=== PATIENT | female | born 1940 | race Caucasian/White ===

== ENCOUNTER 2020-01-18 11:40 | Emergency (ER) | payer MEDICARE, SELFPAY ==
[2020-01-18 11:40] VITALS: BP 180/100; PULSE 63; RESP 18; TEMP 36.9; O2SAT 97; BMI 23.8
--- NOTE | 2020-01-18 11:42 | ECG_ITS ---
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 Measurements Intervals [place] Rate: 60 P: 79 AL: 155 QRS: 60 QRSD: 75 T: 84 QT: 411 QTc: 411 Interpretive Statements SINUS RHYTHM No previous ECG available for comparison Electronically Signed On 01-18-2020 18:07:50 CDT by Chris Gooden M.D. [id number]
--- NOTE | 2020-01-18 11:42 | XRR_ITS ---
PROCEDURE INFORMATION: Exam: XR Chest, 1 View Exam date and time: 01/18/2020 12:11 PM Age: 79 years old Clinical indication: Chest pain; Type not specified TECHNIQUE: Imaging protocol: XR of the chest Views: 1 view. COMPARISON: No relevant prior studies available. FINDINGS: Lungs: Unremarkable. No consolidation. Pleural space: Unremarkable. No pleural effusion. No pneumothorax. Heart/Mediastinum: Unremarkable. No cardiomegaly. Bones/joints: Unremarkable. XR/XR chest 1V portable [id number] IMPRESSION: No acute findings.
--- NOTE | 2020-01-18 11:47 | ED_ITS ---
HPI - Chest Pain General: Chief Complaint: Chest Pain Stated Complaint: CHEST PAIN Time Seen by Provider: 01/18/20 11:41 History of Present Illness: HPI narrative: 79-year-old female comes in concerned about her blood pressures been getting high readings at home highest she reported is 192/92. She had shaking and some kind of chest pressure/pain lasted for just a few seconds it radiated up into the left side of her neck and the epigastrium. She is not had similar pain prior. She not had any kind of formal evaluation of her heart. 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 She has a heart score of 3 with 1-2 risk factors and age greater than 45. MD complaint: chest heaviness Pertinent past history: other (Hypertension) Onset (ago): day(s) Timing of current episode: episodic Prior episodes: Yes Onset: during rest Pain location: left chest Pain radiation: neck (Left) and jaw/teeth (Left) Severity: mild Quality: tightness Relieving factors: nothing Exacerbating factors: nothing Context: recent illness Associated symptoms: Reports no associated symptoms; Deny abdominal pain, dyspnea, fever(s), nausea or vomiting Review of Systems Const: Denies: fever(s), chills, body aches, change in appetite, fatigue or malaise ENMT: Denies: throat pain, ear or mastoid pain, nasal discharge or nasal congestion Card: Denies: chest pain, edema, dyspnea on exertion or orthopnea Resp: Denies: dyspnea, productive cough or non-productive cough GI: Denies: abdominal pain, nausea, vomiting, hematemesis, coffee ground e mesis, diarrhea, constipation, bloating, hematochezia or melena : Denies: flank pain, difficulty voiding, dysuria, urinary frequency or urinary urgency Skin/Breast: Denies: rash or pruritus PFSH ED PFSH: Medical History (Updated 01/18/20 @ 15:17 by Robinson Colón DO) Cervical spinal stenosis Lumbar stenosis Surgical History (Updated 01/18/20 @ 11:59 by Robinson Colón DO) Hx of lumbosacral spine surgery S/P left knee arthroscopy Social History (Updated 01/18/20 @ 15:33 by Maria Guadalupe Wynn LPN, RT) Smoking and tobacco status: never smoked Second hand smoke exposure: No Alcohol intake: never Substance/Drug Use: never Lives independently: Yes Household members: spouse Marital status: Current occupational status: retired History of recent travel: No Current gender identity: Female Physical Exam Const: COMMON NORMALS: average body habitus, patient oriented x3 and alert GENERAL APPEARANCE: cooperative, comfortable, well kempt and well developed NUTRITIONAL APPEARANCE: obese ORIENTATION/CONSCIOUSNESS: Yes awake, Yes oriented to person and Yes oriented to place HENMT: COMMON NORMALS: normocephalic and atraumatic HEAD & SCALP: normocephalic and atraumatic Eye: COMMON NORMALS: Equal, round and reactive pupils present, EOMs intact bilaterally, conjunctivae normal and no scleral icterus CONJUNCTIVA: Yes conjunctivae normal PUPIL: Yes Equal, round and reactive pupils present Neck/C-Spine: COMMON NORMALS: full ROM, no lymphadenopathy, supple, no meningeal signs and Thyroid normal THYROID: Thyroid normal and asymmetrical Lymph: LYMPHATIC: no lymphadenopathy noted Resp: COMMON NORMALS: normal respiratory effort, No retractions, No use of accessory muscles and clear to auscultation bilaterally AUSCULTATION: clear to auscultation bilaterally Cardio: COMMON NORMALS: regular rate and regular rhythm RATE: regular rate RHYTHM: regular rhythm HEART SOUNDS: no murmurs GI: COMMON NORMALS: Normal to inspection, nondistended, normoactive bowel sounds present, Soft to palpation and No hepatosplenomegaly present PALPATION: Yes Soft to palpation and Yes No hepatosplenomegaly present : COMMON NORMALS: Yes no CVA tenderness BLADDER/KIDNEY EXAM: Yes no CVA tenderness Back/Pelvis: COMMON NORMALS: no CVA tenderness LUMBAR SPINE/LOWER BACK: Yes normal to inspection Extremity: COMMON NORMALS: no clubbing, cyanosis or edema, no calf tenderness and no pedal edema Neuro: COMMON NORMALS: patient oriented x3 SENSORIUM/ORIENTATION: Yes alert, Yes oriented to person and Yes oriented to place MENINGEAL SIGNS: Yes no meningeal signs Psych: APPEARANCE: Yes well kempt Skin: COMMON NORMALS: no rashes or lesions noted and turgor normal GENERAL SKIN EXAM: no rashes or lesions noted and turgor normal Course Vital Signs: Vital signs: Vital Signs Temperature 98.5 F 01/18/20 11:40 Pulse Rate 55 L 01/18/20 15:26 Respiratory Rate 19 H 01/18/20 15:26 Blood Pressure 157/73 01/18/20 15:26 Pulse Oximetry 96 01/18/20 15:26 MDM - Chest Pain MDM Narrative: Medical decision making narrative: Atypical chest pain patient not significantly interested in more aggressive evaluation. The pain she did have today was sharp in nature very brief and lasted only a few seconds. Wearing go ahead and discharge her home Case management will schedule sestamibi stress test if she has recurrence of symptoms return to the emergency room immediately. Lab Data: Labs: Lab Results 01/18/20 01/18/20 01/18/20 Range/Units 12:00 12:00 12:00 WBC 4.1 (4.0-10.0) 10^3/ uL RBC 3.94 L (4.1-5.3) 10^6/u L Hgb 11.5 (11.5-15.3) g/dL Hct 35.4 L (37.0-47.0) % MCV 89.8 (81-99) fL MCH 29.2 (28.0-34.0) pg MCHC 32.5 (30.0-36.0) g/dL RDW 11.9 L (12.1-15.1) % Plt Count 227 (130-400) 10^3/c mm MPV 10.1 (7.4-10.4) fL Neut % (Auto) 64.2 % Lymph % (Auto) 26.2 % [place] % (Auto) 6.5 % Eos % (Auto) 2.2 % Baso % (Auto) 0.7 % Neut # (Auto) 2.65 (1.8-7.7) 10^3/u L Lymph # (Auto) 1.1 (0.8-4.8) 10^3/u L [place] # (Auto) 0.3 (0.2-0.9) 10^3/u L Eos # (Auto) 0.1 (0.0-0.8) 10^3/u L Baso # (Auto) 0.0 (0.0-0.1) 10^3/u L Nucleated RBC % (a uto) 0 % Nucleated RBCs # 0.0 /100WBC D-Dimer (0-0.59) ug/mIFE U Sodium 133 L (136-145) mmol/L Potassium 3.9 (3.5-5.1) mmol/L Chloride 99 (98-107) mmol/L Carbon Dioxide 25 (22-29) mmol/L Anion Gap 12.9 (5-19) BUN 14 (8-23) mg/dL Creatinine 0.8 (0.5-0.9) mg/dL GFR Calculation Not Reportable Glucose 131 H (65-115) mg/dL Calculated Osmolal ity 274 L (285-295) mOsm/k g Calcium 9.6 (8.5-10.5) mg/dL Total Bilirubin 0.3 (0.15-1.2) mg/dL AST 19 (0-32) U/L ALT 13 (0-33) U/L Alkaline Phosphata se 49 (35-105) IU/L Troponin T Baselin e 6 (0-10) ng/L Troponin T 120 Min [place] (0-10) ng/L Delta Troponin T (0-10) ABS# Total Protein 6.6 (6.6-8.7) g/dL Albumin 4.2 (3.5-5.2) g/dL Globulin 2.4 (1.3-4.6) g/dL 01/18/20 01/18/20 Range/Units 12:00 13:57 WBC (4.0-10.0) 10^3/ uL RBC (4.1-5.3) 10^6/u L Hgb (11.5-15.3) g/dL Hct (37.0-47.0) % MCV (81-99) fL MCH (28.0-34.0) pg MCHC (30.0-36.0) g/dL RDW (12.1-15.1) % Plt Count (130-400) 10^3/c mm MPV (7.4-10.4) fL Neut % (Auto) % Lymph % (Auto) % [place] % (Auto) % Eos % (Auto) % Baso % (Auto) % Neut # (Auto) (1.8-7.7) 10^3/u L Lymph # (Auto) (0.8-4.8) 10^3/u L [place] # (Auto) (0.2-0.9) 10^3/u L Eos # (Auto) (0.0-0.8) 10^3/u L Baso # (Auto) (0.0-0.1) 10^3/u L Nucleated RBC % (a uto) % Nucleated RBCs # /100WBC D-Dimer 0.75 H (0-0.59) ug/mIFE U Sodium (136-145) mmol/L Potassium (3.5-5.1) mmol/L Chloride (98-107) mmol/L Carbon Dioxide (22-29) mmol/L Anion Gap (5-19) BUN (8-23) mg/dL Creatinine (0.5-0.9) mg/dL GFR Calculation Glucose (65-115) mg/dL Calculated Osmolal ity (285-295) mOsm/k g Calcium (8.5-10.5) mg/dL Total Bilirubin (0.15-1.2) mg/dL AST (0-32) U/L ALT (0-33) U/L Alkaline Phosphata se (35-105) IU/L Troponin T Baselin e (0-10) ng/L Troponin T 120 Min [place] 7.04 (0-10) ng/L Delta Troponin T 1.04 (0-10) ABS# Total Protein (6.6-8.7) g/dL Albumin (3.5-5.2) g/dL Globulin (1.3-4.6) g/dL Discharge Plan Discharge Patient Disposition: Home Clinical Impression: Atypical chest pain Condition: Stable Prescriptions: No Action lisinopril 20 mg Tablet 20 mg PO DAILY RF: 0 amlodipine 5 mg Tablet 5 mg PO DAILY RF: 0 Nitrostat 0.4 mg Tablet, Sublingual 0.4 mg SUBLINGUAL Q5M PRN (Reason: Chest Pain) RF: 0 aspirin 81 mg Tablet,Chewable 81 mg PO DAILY RF: 0 gabapentin 100 mg Capsule 100 mg PO BEDTIME RF: 0 Crestor 10 mg Tablet 10 mg PO DAILY RF: 0 Discharge Orders: Discharge Order (Routine); Ordered 01/18/20 Ordered By: Robinson Colón Referrals: Sheila Cox MD [Primary Care Provider] - Discharge Diet: Advance as tolerated Discharge Activity: Increase activity as tolerated Activity Restrictions/Additional Instructions: Case management will call to schedule a sestamibi stress test Discharge Date/Time: 01/18/20 15:26 Coding Level of Care Code ED Marketing Ambassador for Manuel Fwd Exam Comprehensive
[2020-01-18 12:09] LABS: Basophils % 0.7 %; Eosinophils # 0.1 10^3/uL (0.0-0.8); Eosinophils % 2.2 %; Hematocrit 35.4 % (37.0-47.0); Hemoglobin 11.5 g/dL (11.5-15.3); Lymphocytes # 1.1 10^3/uL (0.8-4.8); Lymphocytes % 26.2 %; Mean Corpuscular HGB Conc 32.5 g/dL (30.0-36.0); Mean Corpuscular Hemoglobin 29.2 pg (28.0-34.0); Mean Corpuscular Volume 89.8 fL (81-99); Mean Platelet Volume 10.1 fL (7.4-10.4); Monocytes # 0.3 10^3/uL (0.2-0.9); Monocytes % 6.5 %; Neutrophils # 2.65 10^3/uL (1.8-7.7); Neutrophils % 64.2 %; Nucleated Red Blood Cells % 0 %; Platelet Count 227 10^3/cmm (130-400); Red Blood Count 3.94 10^6/uL (4.1-5.3); Red Cell Distribution Width 11.9 % (12.1-15.1); White Blood Count 4.1 10^3/uL (4.0-10.0)
[2020-01-18 12:26] LABS: Alanine Aminotransferase 13 U/L (0-33); Albumin Level 4.2 g/dL (3.5-5.2); Alkaline Phosphatase 49 IU/L (35-105); Anion Gap 12.9 (5-19); Aspartate Amino Transferase 19 U/L (0-32); Blood Urea Nitrogen 14 mg/dL (8-23); Calcium 9.6 mg/dL (8.5-10.5); Carbon Dioxide 25 mmol/L (22-29); Chloride 99 mmol/L (98-107); Globulin 2.4 g/dL (1.3-4.6); Glucose 131 mg/dL (65-115); Osmolality Calculated 274 mOsm/kg (285-295); Potassium 3.9 mmol/L (3.5-5.1); Sodium 133 mmol/L (136-145); Total Bilirubin 0.3 mg/dL (0.15-1.2); Total Protein 6.6 g/dL (6.6-8.7)
[2020-01-18 12:28] LABS: Troponin(5th) Baseline 6 ng/L (0-10)
[2020-01-18 13:30] VITALS: BP 141/82; PULSE 56; RESP 20; O2SAT 96
--- NOTE | 2020-01-18 13:42 | ECG_ITS ---
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 Measurements Intervals [place] Rate: 55 P: 75 [place]: 154 QRS: 38 QRSD: 81 T: 67 QT: 449 QTc: 430 Interpretive Statements SINUS BRADYCARDIA Compared to ECG 01/18/2020 11:46:56 Sinus rhythm no longer present Electronically Signed On 01-18-2020 18:27:16 CDT by Chris Gooden M.D. [id number]
[2020-01-18 14:23] LABS: Troponin 5 2HR 7.04 ng/L (0-10); Troponin 5 2HR Delta 1.04 ABS# (0-10)
[2020-01-18 14:30] VITALS: BP 153/73; PULSE 65; RESP 18; O2SAT 98
[2020-01-18 15:09] LABS: D Dimer 0.75 ug/mIFEU (0-0.59)
[2020-01-18 15:26] VITALS: BP 157/73; PULSE 55; RESP 19; O2SAT 96
--- NOTE | 2020-01-18 15:37 | DCPLANNER ---
heavy equipment service manager had message to schedule a follow up appointment for patient for an outpatient stress test. heavy equipment service manager got order, faxed order to centralized scheduling. heavy equipment service manager will call for appointment information.
--- NOTE | 2020-01-23 11:33 | DCPLANNER ---
Patient had an outpatient stress test scheduled for 01.31.20, the stress test was cancelled per patient request.
== END 2020-01-18 15:26 | disposition home or self-care (01) ==
PROVIDERS: Emergency Provider Family Medicine; PCP Family Medicine
DX: R07.89 Other chest pain (principal); Z79.82 Long term (current) use of aspirin
CPT/HCPCS: 12345; 71045; 80053; 84484; 85025; 85378; 93005; 93010; 99283; 99284

== ENCOUNTER 2024-02-08 12:16 | Inpatient (IN) | payer MEDICARE, SELFPAY ==
[2024-02-08] VITALS (20 sets, daily range): BP systolic 130–202; BP diastolic 69–147; PULSE 64–105; RESP 9–23; TEMP 36.3–37; O2SAT 94–100; BMI 24.1; BMI 23.3
--- NOTE | 2024-02-08 12:20 | XR_ITS ---
WS: [email or web address] Exam: XR hip LT 2-3V wo/w pel* [id number] Date/Time of Exam: 02/08/2024 12:32 PM Reason For Exam: fall There is an impacted subcapital fracture of the LEFT hip. No other fractures are identified. Moderate DJD of the joint compartment. The pelvis is intact as visualized. Fusion hardware at the L4-5 level. XR/XR hip LT 2-3V wo/w pel* [id number] IMPRESSION: 1. Impacted subcapital fracture of the LEFT hip.
--- NOTE | 2024-02-08 12:20 | XR_ITS ---
WS: [email or web address] Exam: XR chest 1V portable [id number] Date/Time of Exam: 02/08/2024 12:32 PM Reason For Exam: fall Comparison 01/18/2020. The lungs are clear and fully inflated. Normal cardiomediastinal silhouette. No pleural effusions. Robinson ny structures are intact. XR/XR chest 1V portable [id number] IMPRESSION: 1. No acute cardiopulmonary finding.
--- NOTE | 2024-02-08 12:21 | W.ED.FALL ---
HPI - Fall General: Chief Complaint: Extremity Injury, Lower Stated Complaint: Fall, L hip Time Seen by Provider: 02/08/24 12:16 Source: patient and EMS Mode of arrival: EMS Limitations: no limitations History of Present Illness: 84-year-old female here from home after fall. She states she was trying to turn onto overhead fan and fell onto her left side slamming her left hip send left hip pain since then this happened roughly 1 hour ago. She denies any her head denies any pain elsewhere states she has pain she rates an 8 out of 10 in that left hip pain is much worse with movement. Associated symptoms-after fall: Denies abdominal pain, chest pain, headache(s) or neck pain Related Data Home Medications Medication Instructions Recorded Confirmed amlodipine 5 mg tablet 5 mg PO DAILY 01/18/20 01/18/20 aspirin 81 mg chewable tablet 81 mg PO DAILY 01/18/20 01/18/20 gabapentin 100 mg capsule 100 mg PO BEDTIME 01/18/20 01/18/20 lisinopril 20 mg tablet 20 mg PO DAILY 01/18/20 01/18/20 nitroglycerin 0.4 mg sublingual 0.4 mg sublingual Q5M PRN Chest 01/18/20 01/18/20 tablet (Nitrostat) Pain rosuvastatin 10 mg tablet (Crestor) 10 mg PO DAILY 01/18/20 01/18/20 Allergies Allergy/AdvReac Type Severity Reaction Status Date / Time Sulfa (Sulfonamide Allergy Unknown Verified 01/18/20 15:31 Antibiotics) Review of Systems Const: Denies: fever(s), chills, body aches or change in appetite ENMT: Denies: throat pain or dental pain Card: Denies: chest pain Resp: Denies: dyspnea GI: Denies: abdominal pain, nausea, vomiting or diarrhea Musc: Reports: extremity pain; Denies: neck pain or back pain Skin/Breast: Denies: rash Neuro: Denies: headache(s) PFSH ED PFSH: Medical History Cervical spinal stenosis Lumbar stenosis Surgical History S/P left knee arthroscopy Hx of lumbosacral spine surgery Social History Smoking and tobacco/nicotine status: never used tobacco/nicotine Second hand smoke exposure: No Alcohol intake: never Substance/Drug Use: never Lives independently: Yes Household members: spouse Marital status: Current occupational status: retired Current gender identity: Female Physical Exam Const: COMMON NORMALS: no acute distress, patient oriented x3 and healthy appearing HENMT: COMMON NORMALS: normocephalic and atraumatic HEAD & SCALP: normocephalic and atraumatic Eye: COMMON NORMALS: conjunctivae normal CONJUNCTIVA: Yes conjunctivae normal Neck/C-Spine: COMMON NORMALS: full ROM and supple CERVICAL SPINE: No Cervical spine tenderness Chest: COMMONS NORMALS: normal inspection of the chest Resp: COMMON NORMALS: normal respiratory effort Cardio: COMMON NORMALS: regular rate RATE: regular rate GI: COMMON NORMALS: non-tender Extremity: NARRATIVE EXTREMITY EXAM: Tenderness noted to left hip distal pulses intact Neuro: COMMON NORMALS: patient oriented x3, moves all extremities and no focal motor deficits Psych: COMMON NORMALS: mental status grossly normal, Normal thought process present and cooperative THOUGHT PROCESS: Normal thought process present Skin: COMMON NORMALS: no rashes or lesions noted and no wounds GENERAL SKIN EXAM: no rashes or lesions noted Course Vital Signs: Vital signs: Vital Signs Temperature 98.6 F 02/08/24 12:18 Pulse Rate 82 02/08/24 12:18 Respiratory Rate 17 02/08/24 12:31 Blood Pressure 202/81 02/08/24 12:18 Pulse Oximetry 95 02/08/24 12:31 Oxygen Delivery Me thod Room Air 02/08/24 12:18 MDM - Fall Medical Decision Making Patient presents with hip fracture from a fall spoke to hospitalist will admit at this time. Medical Records I reviewed the patient's medical records. Lab Data I reviewed the patient's lab results. 02/08/24 13:04 02/08/24 13:04 Radiology Impressions Chest X-Ray 02/08/24 12:20 IMPRESSION: 1. No acute cardiopulmonary finding. Hip/Pelvis X-Ray 02/08/24 12:20 IMPRESSION: 1. Impacted subcapital fracture of the LEFT hip. All radiology interpretation(s) finalized by discharge EKG Data EKG 1: I personally reviewed and interpreted this EKG as follows: EKG interpretation date: 02/08/24 EKG interpretation time: 12:56 Interpretation: nsr hr [address] or t wave abnormaliies qrs 79 qtc 418 Discharge Plan Discharge Patient Disposition: Admitted As Inpatient Clinical Impression: Closed fracture of left hip, Fall Condition: Stable Prescriptions: No Action lisinopril 20 mg Tablet 20 mg PO DAILY amlodipine 5 mg Tablet 5 mg PO DAILY Nitrostat 0.4 mg Tablet, Sublingual 0.4 mg SUBLINGUAL Q5M PRN (Reason: Chest Pain) aspirin 81 mg Tablet,Chewable 81 mg PO DAILY gabapentin 100 mg Capsule 100 mg PO BEDTIME Crestor 10 mg Tablet 10 mg PO DAILY Referrals: Sheila Cxo MD [Primary Care Provider] - Coding Level of Care Code ED Software Controls Engineer for Manuel Tiwari
[2024-02-08] MEDS: ondansetron 2 mg/ML SDV 2 mL 4 MG IVP (12:31)
[2024-02-08] MEDS: morphine 4 mg/mL SDV 1 mL IVP (12:31)
--- NOTE | 2024-02-08 12:43 | ECG_ITS ---
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 Measurements Intervals [place] Rate: 62 P: 78 [place]: 149 QRS: 45 QRSD: 79 T: 66 QT: 414 QTc: 421 Interpretive Statements SINUS RHYTHM Compared to ECG 01/18/2020 13:55:15 Sinus bradycardia no longer present Electronically Signed On 02-09-2024 9:01:15 CDT by Randy Davis M.D. [id number]
[2024-02-08 13:15] LABS: Basophils % 0.4 %; Eosinophils # 0.1 10^3/uL (0.0-0.8); Eosinophils % 0.7 %; Hematocrit 37.1 % (36-47); Lymphocytes # 1.7 10^3/uL (0.8-4.8); Lymphocytes % 25.3 %; Mean Corpuscular HGB Conc 32.6 g/dL (30-55); Mean Corpuscular Hemoglobin 29.2 pg (27-33); Mean Corpuscular Volume 89.4 fl (85-98); Mean Platelet Volume 9.6 fL (7.4-10.4); Monocytes # 0.4 10^3/uL (0.2-0.9); Monocytes % 6.1 %; Neutrophils % 67.2 %; Nucleated Red Blood Cells % 0 %; Platelet Count 222 10^3/cmm (157-399); Red Blood Count 4.15 10^6/uL (3.85-5.65); Red Cell Distribution Width 12.3 % (12.1-15.1); White Blood Count 6.85 10^3/uL (3.29-11.43)
[2024-02-08 13:28] LABS: INR 1.08 (0.8-1.2)
--- NOTE | 2024-02-08 13:28 | PC.PHAR ---
Pt states no longer taking Aspirin 81mg, Crestor 10mg, Gabapentin 100mg, duloxetine 20mg, and does not have a bottle of Nitrostat 0.4mg at home lastf ill 01/18/20
[2024-02-08 13:33] LABS: Alanine Aminotransferase 10 U/L (0-33); Alkaline Phosphatase 58 U/L (35-105); Anion Gap 15.9 (5-19); Aspartate Amino Transferase 20 U/L (0-32); Blood Urea Nitrogen 17 mg/dL (8-23); Calcium 8.6 mg/dL (8.5-10.5); Carbon Dioxide 21 mmol/L (22-29); Chloride 101 mmol/L (98-107); Creatinine Clr Calc Pharmacy 49.1106; Globulin 2.8 g/dL (1.3-4.6); Glucose 91 mg/dL (65-115); Osmolality Calculated 279 mOsm/kg (285-295); Potassium 3.9 mmol/L (3.5-5.1); Sodium 134 mmol/L (136-145); Total Bilirubin 0.4 mg/dL (0.15-1.2); Total Protein 6.8 g/dL (6.6-8.7)
[2024-02-08 14:35] LABS: Charge for UA Resulting for Rev
[2024-02-08 14:38] LABS: Bilirubin Urine Negative (Negative); Blood Urine Negative (Negative); Glucose Urine UA Negative (Normal); Ketones Urine Negative (Negative); Leukocyte Esterase Urine 3+ (Negative); Nitrate Urine Negative (Negative); Protein Urine Negative (Negative); Specific Gravity, Urine 1.006 (1.005-1.030); Urine Appearance Clear (CLEAR); Urine Color Yellow (Yellow); Urobilinogen Urine 0.2 mg/dL (Negative); pH Urine 7.5 (5-7)
[2024-02-08 14:43] LABS: Bacteria Urine Trace /hpf; Hyaline Casts Urine 0-4 /lpf; RBC Urine 0-2 /hpf (0-2); Squamous Epithelial Cell Urine 0-5 /hpf (0-5)
[2024-02-08 14:58] LABS: Add Urine Culture? No
--- NOTE | 2024-02-08 15:18 | P.HP_ITS ---
Providers/Chief Complaint 2 Admitting Physician: Rene Pollard Primary Care Provider: Sheila Cox, Chief Complaint: Fall, L hip History of Present Illness Pleasant 84-year-old lady who lives at home with her who is 94, normally active, walking, performing chores at home, walks to the mailbox about 1/4 mile without limitation, who got up on her tippy toes to turn on the ceiling fan, then when getting down she lost her balance and fell onto her left side injuring her left hip, with resultant pain. In the ER she is found to have impacted subcapital fracture of the left hip. Review of Systems 2 Const: Denies: fever(s), chills, body aches or malaise ENMT: Denies: throat pain or ear or mastoid pain Card: Denies: chest pain, edema, pre-syncope or dyspnea on exertion Resp: Denies: dyspnea, productive cough, change in phlegm color or hemoptysis GI: Denies: abdominal pain, nausea, vomiting, diarrhea, constipation, hematochezia or melena : Denies: flank pain, urinary frequency or hematuria Musc: Denies: back pain, joint swelling or joint redness Skin/Breast: Denies: rash or new lesions Neuro: Denies: headache(s) Endo: Denies: polyuria or polydipsia Medications/Allergies Home Medications Medication Instructions Recorded Confirmed Last Taken Type lisinopril 20 mg tablet 20 mg PO QPM 01/18/20 02/08/24 02/07/24 History amlodipine 10 mg tablet 10 mg PO QAM 02/08/24 02/08/24 02/07/24 History buspirone 5 mg tablet 5 mg PO DAILY PRN Anxiety 02/08/24 02/08/24 02/08/24 History multivitamin 1 tab PO QAM 02/08/24 02/08/24 02/08/24 History potassium gluconate 600 mg (99 mg) 600 mg PO DAILY 02/08/24 02/08/24 02/08/24 History tablet tramadol 50 mg tablet 50 - 100 mg PO Q6H PRN Pain 02/08/24 02/08/24 Unknown History Allergies Allergy/AdvReac Type Severity Reaction Status Date / Time Sulfa (Sulfonamide Allergy Unknown Verified 01/18/20 15:31 Antibiotics) PFSH Acute 2 PFSH: Medical History Cervical spinal stenosis Lumbar stenosis Surgical History S/P left knee arthroscopy Hx of lumbosacral spine surgery Social History Smoking and tobacco/nicotine status: never used tobacco/nicotine Second hand smoke exposure: No Alcohol intake: never Substance/Drug Use: never Lives independently: Yes Household members: spouse Marital status: Current occupational status: retired Current gender identity: Female Vitals/I&O/Wt Last Vital Signs Temp 98.6 F 02/08/24 12:18 Pulse 74 02/08/24 14:24 Resp 17 02/08/24 12:31 BP 173/147 02/08/24 13:54 Pulse Ox 97 02/08/24 14:24 O2 Del Method Room Air 02/08/24 14:24 Weight last 48 hrs Weight 65.771 kg Physical Exam 2 Const: COMMON NORMALS: patient oriented x3 and alert GENERAL APPEARANCE: c ooperative ORIENTATION/CONSCIOUSNESS: Yes awake HENMT: COMMON NORMALS: oropharynx normal Neck/C-Spine: COMMON NORMALS: no JVD Resp: COMMON NORMALS: normal respiratory effort and clear to auscultation bilaterally AUSCULTATION: clear to auscultation bilaterally Cardio: COMMON NORMALS: no JVD, regular rhythm, S1 normal heart sound present, S2 normal heart sound present and No murmurs present (Cardio) RHYTHM: regular rhythm HEART SOUNDS: S1 normal heart sound present and S2 normal heart sound present GI: COMMON NORMALS: Normal to inspection, nondistended, normoactive bowel sounds present, Soft to palpation and non-tender PALPATION: Yes Soft to palpation Extremity: COMMON NORMALS: no joint enlargement and no pedal edema Neuro: COMMON NORMALS: patient oriented x3 and moves all extremities S ENSORIUM/ORIENTATION: Yes alert Skin: COMMON NORMALS: no rashes or lesions noted GENERAL SKIN EXAM: no rashes or lesions noted Data 02/08/24 13:04 02/08/24 13:04 A&P Assessment and plan (1) Closed fracture of left hip: Reviewed vitals, CBC, CMP, INR, UA, hip x-ray, chest x-ray, EKG, on my interpretation sinus rhythm without evidence of ischemia, pending official read. ER note, discussed with ER provider. Discussed with orthopedics. She is generally active at baseline, performs chores, not exertionally limited on flat ground, walks about 1/4 mile to the mailbox. Of advanced age. Hypertension, hypertensive in ER, 161/79. Normally takes amlodipine, lisinopril. Resume after surgery. Some pyuria, 11-20 WBC, although not much in terms of urinary symptoms. Adding ceftriaxone. Otherwise not much that should delay her hip surgery. 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 IV morphine as needed for pain. Acetaminophen as needed for mild pain. SCD for VTE prophylaxis in anticipation of surgery, subsequently DVT prophylaxis once safe per orthopedics. (2) Fall: UA checked, 11-20 WBC. Empirically treat with ceftriaxone for now. Obtain urine culture. Fall overall appears more due to loss of balance after stretching up onto tippy toes to turn on the ceiling fan. Fall prevention. PT assessment postoperatively. Plan Hypertension: At home normally on amlodipine, lisinopril, resume home medications. Attestations 2 Medical Necessity Statement*: Admission of over 2 midnights anticipated for assessment management of left hip fracture and repair in a lady of advanced age with underlying hypertension. and High MDM includes amount and/or complexity of data reviewed/ordered [ previous or external records, resulted lab(s)/test(s), ordered lab(s)/test(s), independent test interpretation and other healthcare professional discussion] and described risk of complication, morbidity or mortality of management as documented Diagnoses Closed fracture of left hip S72.002A Fall W19.XXXA
--- NOTE | 2024-02-08 15:19 | PC.NURSE ---
This nurse took report from DOREEN Brewer in ER at 1517 for FABIAN Mann as she was doing pt care in another room.
--- NOTE | 2024-02-08 15:47 | PC.NURSE ---
Pt transferred from ER to Med Surg room 264 via gurney at 1530. Anesthesia and Pre Op nurse came to bedside immediately after to discuss consent. Pt expected to go to OR briefly.
[2024-02-08] MEDS: sodium chloride 0.9% 1,000 ML 30 ML IV (16:54)
[2024-02-08] MEDS: acetaminophen 1,000 MG/100 ML PIGGYBACK 400 MG IV (16:55)
--- NOTE | 2024-02-08 16:56 | P.CONIM_ITS ---
Providers/Reason For Consult 2 Consulting Physician/Specialty*: Christiane Vigil MD Reason for Consult*: Left subcapital hip fracture Requesting Physician: Dr. Ciaran Haider Attending Physician: Rene Pollard Primary Care Provider: Sheila Cox, History of Present Illness History of Present Illness Cynthia Watkins is a 84 year old female who lives at home with her 94-year-old . She is normally very active performing chores at home. She walks to the mailbox approximately 1/4 mile without limitation. The patient got up on her tippy toes to adjust a ceiling fan and she lost her balance falling onto the left side. She presented to the emergency department with an impacted subcapital left hip fracture. She was admitted to the hospitalist team for definitive surgical treatment by me. Review of Systems 2 Const: Denies: fever(s), chills, body aches, change in appetite or malaise ENMT: Denies: throat pain, dental pain or ear or mastoid pain Card: Denies: chest pain, edema, pre-syncope or dyspnea on exertion Resp: Denies: dyspnea, productive cough, change in phlegm color or hemoptysis GI: Denies: abdominal pain, nausea, vomiting, diarrhea, constipation, hematochezia or melena : Denies: flank pain, urinary frequency or hematuria Musc: Reports: extremity pain; Denies: neck pain, back pain, joint swelling or joint redness Skin/Breast: Denies: rash or new lesions Neuro: Denies: headache(s) Endo: Denies: polyuria or polydipsia Medications/Allergies Home Medications Medication Instructions Recorded Confirmed Last Taken Type lisinopril 20 mg tablet 20 mg PO QPM 01/18/20 02/08/24 02/07/24 History amlodipine 10 mg tablet 10 mg PO QAM 02/08/24 02/08/24 02/07/24 History buspirone 5 mg tablet 5 mg PO DAILY PRN Anxiety 02/08/24 02/08/24 02/08/24 History multivitamin 1 tab PO QAM 02/08/24 02/08/24 02/08/24 History potassium gluconate 600 mg (99 mg) 600 mg PO DAILY 02/08/24 02/08/24 02/08/24 History tablet tramadol 50 mg tablet 50 - 100 mg PO Q6H PRN Pain 02/08/24 02/08/24 Unknown History Allergies Allergy/AdvReac Type Severity Reaction Status Date / Time Sulfa (Sulfonamide Allergy Unknown Verified 01/18/20 15:31 Antibiotics) Current Medications Generic Name Dose Route Start Last Admin Trade Name Freq PRN Reason Stop Dose Admin Sodium Chloride 1,000 mls @ 30 mls/hr 02/08/24 17:00 02/08/24 16:54 Sodium Chloride 0.9% IV 02/09/24 16:59 30 mls/hr .Q24H SHELLY Administration PFSH Acute 2 PFSH: Medical History Cervical spinal stenosis Lumbar stenosis Surgical History S/P left knee arthroscopy Hx of lumbosacral spine surgery Social History Smoking and tobacco/nicotine status: never used tobacco/nicotine Second hand smoke exposure: No Alcohol intake: never Substance/Drug Use: never Lives independently: Yes Household members: spouse Marital status: Current occupational status: retired Current gender identity: Female Vitals/I&O/Wt Last Vital Signs Temp 97.8 F 02/08/24 15:42 Pulse 76 02/08/24 15:42 Resp 17 02/08/24 15:42 BP 161/79 02/08/24 15:42 Pulse Ox 96 02/08/24 15:42 O2 Del Method Room Air 02/08/24 15:42 Weight last 48 hrs Weight 140 lb Weight 145 lb Physical Exam 2 Const: COMMON NORMALS: no acute distress, average body habitus, patient oriented x3 and alert GENERAL APPEARANCE: cooperative and comfortable O RIENTATION/CONSCIOUSNESS: Yes awake HENMT: COMMON NORMALS: normocephalic and atraumatic HEAD & SCALP: n ormocephalic and atraumatic Eye: GENERAL EYE: appearance normal, both eyes and all related structures Chest: COMMONS NORMALS: normal inspection of the chest Resp: COMMON NORMALS: normal respiratory effort EFFORT & INSPECTION: Yes able to speak in complete sentences and Yes symmetric chest movement Extremity: LEFT LOWER EXTREMITY: Yes hip joint (Painful range of motion) Left hip: Yes inspection ( no significant ecchymosis), Yes palpation ( tender to palpation), Yes ROM (Not evaluated secondary to fracture) and Yes neurovascular exam ( intact distally) Neuro: COMMON NORMALS: patient oriented x3 SENSORIUM/ORIENTATION: Yes alert Psych: COMMON NORMALS: mental status grossly normal APPEARANCE: Yes grossly normal ATTITUDE: Yes calm and Yes engaged ATTENTION/CONCENTRATION: Yes attention grossly intact Skin: COMMON NORMALS: no rashes or lesions noted GENERAL SKIN EXAM: no rashes or lesions noted Urinary Catheter Management: Murphy: Cath Placed During This Visit: yes Urinary Catheter Date of Insertion: 02/08/24 Urinary Catheter Time of Insertion: 16:31 Data 02/08/24 13:04 02/08/24 13:04 Xray Ortho: My impression: I have personally reviewed the patient's imaging studies, and they demonstrated an impacted left subcapital hip fracture. There is valgus angulation. A&P Assessment and plan (1) Subcapital fracture of left hip: The patient was admitted today through the emergency department with diagnosis of a left subcapital hip fracture. I have evaluated the x-rays, and there is a valgus impacted left subcapital hip fracture. After evaluation by the hospitalist team, she was felt to be optimized for surgery. Therefore, she will be taken to the operating theater this evening for surgical intervention. The plan is for cannulated screws. Risks and complications are discussed with patient. She is consented for surgery and agrees. Qualifiers: Encounter type: initial encounter Fracture type: closed Qualified Code(s): S72.012A - Unspecified intracapsular fracture of left femur, initial encounter for closed fracture Coding Level of Care Code Acute Code for Chg Fwd Diagnoses Closed subcapital fracture of left femur, initial encounter S72.012A Encounter type: initial encounter Fracture type: closed
[2024-02-08] MEDS: ceFAZolin 2,000 mg SDV 2000 MG IVP (17:04)
[2024-02-08] MEDS: BUPivacaine 0.5% INJ 10 mL INJECTION (18:00)
[2024-02-08] MEDS: ceFAZolin 1,000 mg SDV 1000 MG IRRIGATION (18:01)
--- NOTE | 2024-02-08 18:08 | ANES.PREANE2 ---
Pre-Anesthetic Assessment Height/Weight: Height 1.65 m Weight 63.503 kg Temp Pulse Resp BP Pulse Ox O2 Del Method 97.8 F 76 17 161/79 96 Room Air 02/08/24 16:41 02/08/24 16:41 02/08/24 16:41 02/08/24 16:41 02/08/24 16:41 02/08/24 16:41 Operation Date: 02/08/24 18:10 Proposed Procedures p Cannulated Hip Screw(Left) - Christiane Vigil MD Familial anesthetic complications: NOne Was Beta Rashmi taken within 24 hours: N/A Was Clonidine taken within 24 hours: N/A Last intake: Intake Last Liquid Date 02/08/24 Last Liquid Time 08:00 Last Solid Date 02/08/24 Last Solid Time 08:00 Social No alcohol and No tobacco Exam alert, oriented x 3, clear to auscultation bilaterally and regular rate & rhythm CV/HEM Hypertension Anesthetic Plan ASA status: 3 Anesthesia: General Risk of > 500 ml blood loss (7ml/kg in children): No Medications/Allergies Home Medications Medication Instructions Recorded Confirmed Last Taken Type lisinopril 20 mg tablet 20 mg PO QPM 01/18/20 02/08/24 02/07/24 History amlodipine 10 mg tablet 10 mg PO QAM 02/08/24 02/08/24 02/07/24 History buspirone 5 mg tablet 5 mg PO DAILY PRN Anxiety 02/08/24 02/08/24 02/08/24 History multivitamin 1 tab PO QAM 02/08/24 02/08/24 02/08/24 History potassium gluconate 600 mg (99 mg) 600 mg PO DAILY 02/08/24 02/08/24 02/08/24 History tablet tramadol 50 mg tablet 50 - 100 mg PO Q6H PRN Pain 02/08/24 02/08/24 Unknown History Allergies Allergy/AdvReac Type Severity Reaction Status Date / Time Sulfa (Sulfonamide Allergy Unknown Verified 01/18/20 15:31 Antibiotics) Current Medications Generic Name Dose Route Start Last Admin Trade Name Freq PRN Reason Stop Dose Admin Bupivacaine HCl 10 ml 02/08/24 18:07 02/08/24 18:00 Bupivacaine 0.5% Inj 10 Ml INJECTION 02/08/24 18:08 10 ml ONCE ONE Administration Sodium Chloride 1,000 mls @ 30 mls/hr 02/08/24 17:00 02/08/24 16:54 Sodium Chloride 0.9% IV 02/09/24 16:59 30 mls/hr .Q24H SHELLY Administration PFSH Anesthesia Medical History Cervical spinal stenosis Lumbar stenosis Surgical History S/P left knee arthroscopy Hx of lumbosacral spine surgery Social History Smoking and tobacco/nicotine status: never used tobacco/nicotine Second hand smoke exposure: No Alcohol intake: never Substance/Drug Use: never Lives independently: Yes Household members: spouse Marital status: Current occupational status: retired Current gender identity: Female Data Anesthesia 02/08/24 13:04 02/08/24 13:04 Short CBC 02/08/24 Range/Units 13:04 WBC 6.85 (3.29-11.43) 10^3/uL Hgb 12.10 (11.27-16.99) g/dL Hct 37.1 (36-47) % MCV 89.4 (85-98) fl Plt Count 222 (157-399) 10^3/cmm Neut % (Auto) 67.2 % Neut # (Auto) 4.60 (1.8-7.7) 10^3/uL BMP 02/08/24 13:04 Sodium 134 L Potassium 3.9 Chloride 101 Carbon Dioxide 21 L BUN 17 Creatinine 0.8 Glucose 91 Calcium 8.6 Liver Function 02/08/24 Range/Units 13:04 Total Bilirubin 0.4 (0.15-1.2) mg/dL AST 20 (0-32) U/L ALT 10 (0-33) U/L Alkaline Phosphatase 58 (35-105) U/L Albumin 4.0 (3.5-5.2) g/dL Urine 02/08/24 Range/Units 14:11 Urine Color Yellow (Yellow) Urine Appearance Clear (CLEAR) Urine pH 7.5 (5-7) Ur Specific Imperial 1.006 (1.005-1.030) Urine Protein Negative (Negative) Urine Glucose (UA) Negative (Normal) Urine Ketones Negative (Negative) Urine Nitrate Negative (Negative) Urine Bilirubin Negative (Negative) Ur Leukocyte Esterase 3+ A (Negative) Urine RBC 0-2 (0-2) /hpf Urine WBC 11-20 H (0-5) /hpf Coags 02/08/24 13:04 PT 14.30 INR 1.08 Cardiac Studies: No Data to Display
--- NOTE | 2024-02-08 18:24 | PM.OP ---
Operative Report Date of procedure: February 08, 2024 Pre-op diagnosis: Left subcapital hip fracture Post-op diagnosis: Left subcapital hip fracture Post-op findings: Impacted minimally displaced left subcapital hip fracture Procedure done: Open reduction internal fixation with cannulated screws left subcapital hip fracture Implants: Richar 6.5 cannulated screws x 3 Specimens removed/disposition: None Pathology: None Surgeon: Christiane Vigil MD Anesthesia: General (General per LMA, ASA 3) Estimated blood loss (mL): 25 IV fluids (mL): 400 Urine output (mL): 600 Complications: None Findings: Impacted minimally displaced left subcapital hip fracture Condition: stable Disposition: PACU (Then return to floor for postoperative rehabilitation and pain management) Brief History: Cynthia Watkins is a 84 year old female who lives at home with her 94-year-old . She is normally very active performing chores at home. She walks to the mailbox approximately 1/4 mile without limitation. The patient got up on her tippy toes to adjust a ceiling fan and she lost her balance falling onto the left side. She presented to the emergency department with an impacted subcapital left hip fracture. She was admitted to the hospitalist team for definitive surgical treatment by me. Procedure: Patient is brought to the operating theater and after undergoing adequate general anesthesia per LMA, ASA 3, the patient was transferred to the fracture table. Fluoroscopy was positioned so that we could visualize the fracture in AP and lateral planes. Maintenance of position of was confirmed. Being satisfied with the position of the femoral head the leg was then prepped with DuraPrep. A shower curtain style drape was utilized to drape out the patient's left lower extremity. Patient's leg was marked in the preoperative holding area and these markings were visualized. A surgical pause was performed. We confirmed administration of preoperative IV Ancef 2 g as well as the site and side of surgery. Fluoroscopy was utilized and an incision was made in appropriate position to allow placement of 3 cannulated screws using the Tobin gun as a guide. The most inferior of the inverted triangle wire was placed first. Optimal position was determined with fluoroscopy in AP and lateral. The remaining guidewires were then placed also under fluoroscopic guidance in AP and lateral planes. The Tobin gun was removed and the length of guidewires was measured. The cannulated screws were then placed over the guidewire. Guidewires were advanced to appropriate position and subsequently hand tightened. Position of the screws was confirmed in AP and lateral. Being satisfied with the position of the screws, guidewires were removed. AP and lateral images were obtained utilizing fluoroscopy. Being satisfied the wound was irrigated, closure was then accomplished with 0 Vicryl in the fascial tissues and 2-0 Monocryl in the subcutaneous tissues. Skin was closed with a running 3-0 Monocryl. The wound was then injected with 10 cc bupivacaine. Sterile dressing was then placed consisting of Dermabond, Steri-Strips, and OpSite. The patient was returned the recovery room in satisfactory condition. There were no complications. There were no specimens. The family prefers to be discharged to home rather than admitted to the hospital. We will evaluate him determine whether or not this is appropriate given his postoperative responses. Related Problem List Diagnoses (1) Subcapital fracture of left hip:
--- NOTE | 2024-02-08 19:05 | ANE.PACU2 ---
Inpatient post-anesthesia follow up: Airway intact: Yes Vital signs: Temperature 97.7 F Pulse Rate 69 Respiratory Rate 18 Blood Pressure 141/54 Pulse Oximetry 96 Oxygen Delivery Me thod Room Air Oxygen Flow Rate 8 Fraction of Inspir ed Oxygen Hydration adequate: Yes Nausea and vomiting: No Pain level: 1 Mental status: Baseline
[2024-02-08] MEDS: lisinopril 20 mg Tablet PO (19:57)
[2024-02-09] VITALS: BP 132/66; PULSE 78; RESP 16; TEMP 36.4; O2SAT 95
--- NOTE | 2024-02-09 | XR_ITS ---
WS: [id number] Exam: XR hip LT 2-3V wo/w pel* [id number] Date/Time of Exam: 02/09/2024 12:00 AM Reason For Exam: SCOUT PICS Intraoperative AP and lateral C-arm images of the LEFT hip are submitted. 3 Orthopedic nails stabilize a subcapital fracture of the LEFT hip and satisfactory alignment for jossue willson.
[2024-02-09 04:00] VITALS: BP 141/54; PULSE 69; RESP 18; TEMP 36.5; O2SAT 96
[2024-02-09 04:26] LABS: Basophils % 0.1 %; Hematocrit 34.4 % (36-47); Lymphocytes # 1.3 10^3/uL (0.8-4.8); Mean Corpuscular HGB Conc 32.8 g/dL (30-55); Mean Corpuscular Hemoglobin 28.8 pg (27-33); Mean Corpuscular Volume 87.5 fl (85-98); Monocytes # 0.3 10^3/uL (0.2-0.9); Monocytes % 4.4 %; Neutrophils # 6.17 10^3/uL (1.8-7.7); Neutrophils % 79.1 %; Nucleated Red Blood Cells % 0 %; Platelet Count 254 10^3/cmm (157-399); Red Blood Count 3.93 10^6/uL (3.85-5.65); Red Cell Distribution Width 12.2 % (12.1-15.1)
[2024-02-09 04:36] LABS: Anion Gap 16.2 (5-19); Blood Urea Nitrogen 18 mg/dL (8-23); Calcium 8.2 mg/dL (8.5-10.5); Carbon Dioxide 23 mmol/L (22-29); Chloride 98 mmol/L (98-107); Creatinine Clr Calc Pharmacy 48.3742; Glucose 161 mg/dL (65-115); Osmolality Calculated 281 mOsm/kg (285-295); Potassium 4.2 mmol/L (3.5-5.1); Sodium 133 mmol/L (136-145)
[2024-02-09] MEDS: amlodipine 10 mg Tablet PO (05:33)
[2024-02-09] MEDS: multivitamin therapeutic Tablet 1 TAB PO (05:33)
[2024-02-09 07:59] VITALS: BP 118/62; PULSE 73; RESP 18; TEMP 36.8; O2SAT 96
[2024-02-09] MEDS: aspirin 325 mg EC Tablet PO (08:48)
[2024-02-09] MEDS: acetaminophen 325 mg Tablet 650 MG PO (08:57)
[2024-02-09 11:49] VITALS: BP 108/62; PULSE 70; RESP 17; TEMP 36.9; O2SAT 95
[2024-02-09 15:34] VITALS: BP 122/67; PULSE 91; RESP 16; TEMP 36.4; O2SAT 92
[2024-02-09] MEDS: cefTRIAXone 1,000 mg SDV 1000 MG IVP (15:48)
--- NOTE | 2024-02-09 16:35 | P.PN_ITS ---
Subjective 2 Subjective: Cynthia is an 84-year-old female patient, who lives at home alone with her . She is now postop day 1 from left hip open reduction internal fixation with cannulated screws for subcapital hip fracture. She has done well overnight and her pain is now well-maintained. She is using oral medications as needed only. She has worked with physical therapy and is ambulating successfully with a walker. She has been managed by the medical service and is actively ready for discharge, per the patient and hospitalist report. Medications: Reviewed: Yes Vitals/I&O/Wt Last Vital Signs Temp 97.6 F 02/09/24 15:34 Pulse 91 02/09/24 15:34 Resp 16 02/09/24 15:34 BP 122/67 02/09/24 15:34 Pulse Ox 92 02/09/24 15:34 O2 Del Method Room Air 02/09/24 15:34 O2 Flow Rate 8 02/08/24 18:40 02/09/24 02/09/24 02/09/24 06:59 14:59 22:59 Intake Total 100 / 1920 240 / 240 Output Total 250 / 1425 Balance -150 / 495 240 / 240 Weight last 48 hrs Weight 152 lb 14.4 oz Weight 140 lb Weight 145 lb Physical Exam 2 Const: COMMON NORMALS: no acute distress, average body habitus, patient oriented x3 and alert GENERAL APPEARANCE: cooperative and comfortable O RIENTATION/CONSCIOUSNESS: Yes awake HENMT: COMMON NORMALS: normocephalic and atraumatic HEAD & SCALP: n ormocephalic and atraumatic Chest: COMMONS NORMALS: normal inspection of the chest Resp: COMMON NORMALS: normal respiratory effort EFFORT & INSPECTION: Yes able to speak in complete sentences and Yes symmetric chest movement Cardio: OTHER: Declined shortness of breath, chest pain or difficulty breathing. Extremity: LEFT LOWER EXTREMITY: Yes hip joint Left hip: Yes inspection (No skin breakdown or bruising. Postoperative dressing intact and dry.), Yes palpation (Mild TTP to incision), Yes ROM (Able to perform active leg lift.), Yes neurovascular exam (Sensation intact to light touch. Normal distal pulses) and Yes other (Rapid cap refill.) Neuro: COMMON NORMALS: patient oriented x3 SENSORIUM/ORIENTATION: Yes alert Psych: COMMON NORMALS: mental status grossly normal APPEARANCE: Yes grossly normal ATTITUDE: Yes calm and Yes engaged ATTENTION/CONCENTRATION: Yes attention grossly intact Skin: COMMON NORMALS: no rashes or lesions noted GENERAL SKIN EXAM: no rashes or lesions noted Urinary Catheter Management: Murphy: Cath Placed During This Visit: yes, but has since been removed by the nurse Reason for Continuing Indwelling Catheter: Decision to DC Catheter Urinary Catheter Date of Insertion: 02/08/24 Urinary Catheter Time of Insertion: 16:31 Date Urinary Catheter Removed: 02/09/24 Time Urinary Catheter Discontinued: 05:41 Data 02/09/24 03:25 02/09/24 03:25 Xray Ortho: My impression: Intraoperative fluoroscopy guided images were reviewed. Stable appearing open reduction internal fixation with cannulated screw fixation. No evidence of hardware failure, loosening or other acute fracture. Images were also reviewed patient. A&P Assessment and plan (1) Subcapital fracture of left hip: Cynthia is an 84-year-old, female patient, who is postoperative day 1 from left hip open reduction internal fixation with cannulated screws. Patient fell at home on February 08, 2024 and was subsequently taken to the emergency department after the fall, where she was then diagnosed with hip fracture and taken to the operating room for ORIF. The patient is seen in her room, with family at bedside today. She has been up ambulating with physical therapy, doing quite well. Patient states her pain is well-controlled and she is utilizing only oral pain medications at this time. She states she has minimal discomfort when ambulating and is utilizing walker safely. Calf is soft and nontender. Postoperative dressing is clean and dry, without active drainage. Patient is able to perform active leg lift at the hip, without pain. As she is doing well, we will plan to discharge her from the hospital from an orthopedic standpoint. She will follow-up in the orthopedic clinic in 2 to 3 weeks with x-rays in the office. All questions with the family and the patient's were answered. Qualifiers: Encounter type: subsequent encounter Fracture type: closed Fracture healing: with routine healing Qualified Code(s): S72.012D - Unspecified intracapsular fracture of left femur, subsequent encounter for closed fracture with routine healing (2) Fall: Qualifiers: Encounter type: subsequent encounter Qualified Code(s): W19.XXXD - Unspecified fall, subsequent encounter Attestations 2 Medical Necessity Statement*: Patient required overnight stay for medical optimization and for acute postoperative evaluation after subcapital hip fracture open reduction internal fixation. Coding Level of Care Code Acute Code for Chg Fwd Diagnoses Closed subcapital fracture of left femur with routine healing, subsequent encounter S72.012D Encounter type: subsequent encounter Fracture type: closed Fracture healing: with routine healing Fall, subsequent encounter W19.XXXD Encounter type: subsequent encounter
--- NOTE | 2024-02-09 17:28 | PM.DCS ---
Discharge Providers Date of Admission: 02/08/24 14:35 Date of Discharge: February 09, 2024 Attending Provider at Admission: Rene Pollard Attending Provider at Discharge: Rene Pollard Primary Care Provider: Sheila Cox, Diagnoses at Discharge Discharge Diagnosis (1) Subcapital fracture of left hip: Status: Acute Qualifiers: Encounter type: subsequent encounter Fracture type: closed Fracture healing: with routine healing Qualified Code(s): S72.012D - Unspecified intracapsular fracture of left femur, subsequent encounter for closed fracture with routine healing (2) Fall: Status: Acute Qualifiers: Encounter type: subsequent encounter Qualified Code(s): W19.XXXD - Unspecified fall, subsequent encounter Reason for Visit Reason for Visit: Fall, L hip Brief History: Pleasant 84-year-old lady who lives at home with her who is 94, normally active, walking, performing chores at home, walks to the mailbox about 1/4 mile without limitation, who got up on her tippy toes to turn on the ceiling fan, then when getting down she lost her balance and fell onto her left side injuring her left hip, with resultant pain. In the ER she is found to have impacted subcapital fracture of the left hip. Hospital Course Hospital Course She was admitted, assessed orthopedics. Started on pain control, SCDs for DVT prophylaxis. UA was obtained, noted 15-20 WBC. Started empirically on ceftriaxone. Urine culture is pending. Please follow-up. Underwent ORIF of left hip on 02/07 with uneventful postoperative course. Worked well with physical therapy. She is otherwise doing well, and would like to return home. She is returning home with home health report, instructions and is asked to follow-up with primary provider and orthopedics in office for reassessment. She will continue on Xarelto for DVT prophylaxis after discussion of different options including aspirin, Lovenox. She feels she mostly needs Tylenol for pain, pain level 2-3, per discussion 3 tablets of hydrocodone provided for any episodes of worse pain. She is asked to discontinue tramadol to avoid increasing risk of bleeding. Physical Exam Narrative: Accompanied by family on second visit. Const: COMMON NORMALS: patient oriented x3 and alert GENERAL APPEARANCE: cooperative ORIENTATION/CONSCIOUSNESS: Yes awake HENMT: COMMON NORMALS: oropharynx normal Neck/C-Spine: COMMON NORMALS: no JVD Resp: COMMON NORMALS: normal respiratory effort and clear to auscultation bilaterally AUSCULTATION: clear to auscultation bilaterally Cardio: COMMON NORMALS: no JVD, regular rhythm, S1 normal heart sound present, S2 normal heart sound present and No murmurs present (Cardio) RHYTHM: regular rhythm HEART SOUNDS: S1 normal heart sound present and S2 normal heart sound present GI: COMMON NORMALS: Normal to inspection, nondistended, normoactive bowel sounds present, Soft to palpation and non-tender PALPATION: Yes Soft to palpation Extremity: COMMON NORMALS: no joint enlargement and no pedal edema Neuro: COMMON NORMALS: patient oriented x3 and moves all extremities SENSORIUM/ORIENTATION: Yes alert Skin: COMMON NORMALS: no rashes or lesions noted GENERAL SKIN EXAM: no rashes or lesions noted Urinary Catheter Management: Murphy: Cath Placed During This Visit: yes, but has since been removed by the nurse Reason for Continuing Indwelling Catheter: Decision to DC Catheter Urinary Catheter Date of Insertion: 02/08/24 Urinary Catheter Time of Insertion: 16:31 Date Urinary Catheter Removed: 02/09/24 Time Urinary Catheter Discontinued: 05:41 Discharge Data Studies Completed and Pending Completed Studies During Hospitalization Category Date Time Status CXRP [XR chest 1V portable [id number]] Stat Exams 02/08/24 12:20 Completed XR hip LT 2-3V wo/w pel* [id number] Stat Exams 02/08/24 12:20 Completed Pending at discharge Category Date Time Status C-arm Fluoroscopy 25547 Routine Exams 02/09/24 Taken Basic Metabolic Panel AM LABS Lab 02/10/24 04:00 Ordered Basic Metabolic Panel AM LABS Lab 02/11/24 04:00 Ordered Complete Blood Count w/Auto AM LABS Lab 02/10/24 04:00 Ordered Complete Blood Count w/Auto AM LABS Lab 02/11/24 04:00 Ordered Urine Culture Routine Lab 02/08/24 14:11 Received Radiology Impressions Chest X-Ray 02/08/24 12:20 IMPRESSION: 1. No acute cardiopulmonary finding. Hip/Pelvis X-Ray 02/08/24 12:20 IMPRESSION: 1. Impacted subcapital fracture of the LEFT hip. Laboratory Results WBC 7.80 10^3/uL (3.29-11.43) 02/09/24 03:25 RBC 3.93 10^6/uL (3.85-5.65) 02/09/24 03:25 Hgb 11.30 g/dL (11.27-16.99) 02/09/24 03:25 Hct 34.4 % (36-47) L 02/09/24 03:25 MCV 87.5 fl (85-98) 02/09/24 03:25 MCH 28.8 pg (27-33) 02/09/24 03:25 MCHC 32.8 g/dL (30-55) 02/09/24 03:25 RDW 12.2 % (12.1-15.1) 02/09/24 03:25 Plt Count 254 10^3/cmm (157-399) 02/09/24 03:25 MPV 10.0 fL (7.4-10.4) 02/09/24 03:25 Neut % (Auto) 79.1 % 02/09/24 03:25 Lymph % (Auto) 16.0 % 02/09/24 03:25 [place] % (Auto) 4.4 % 02/09/24 03:25 Eos % (Auto) 0.0 % 02/09/24 03:25 Baso % (Auto) 0.1 % 02/09/24 03:25 Neut # (Auto) 6.17 10^3/uL (1.8-7.7) 02/09/24 03:25 Lymph # (Auto) 1.3 10^3/uL (0.8-4.8) 02/09/24 03:25 [place] # (Auto) 0.3 10^3/uL (0.2-0.9) 02/09/24 03:25 Eos # (Auto) 0.0 10^3/uL (0.0-0.8) 02/09/24 03:25 Baso # (Auto) 0.0 10^3/uL (0.0-0.1) 02/09/24 03:25 Nucleated RBC % (auto) 0 % 02/09/24 03:25 Nucleated RBCs # 0.0 /100WBC 02/09/24 03:25 PT 14.30 SECONDS (12.1-14.9) 02/08/24 13:04 INR 1.08 (0.8-1.2) 02/08/24 13:04 Sodium 133 mmol/L (136-145) L 02/09/24 03:25 Potassium 4.2 mmol/L (3.5-5.1) 02/09/24 03:25 Chloride 98 mmol/L (98-107) 02/09/24 03:25 Carbon Dioxide 23 mmol/L (22-29) 02/09/24 03:25 Anion Gap 16.2 (5-19) 02/09/24 03:25 BUN 18 mg/dL (8-23) 02/09/24 03:25 Creatinine 0.8 mg/dL (0.5-0.9) 02/09/24 03:25 GFR Calculation Not Reportable 02/09/24 03:25 Glucose 161 mg/dL (65-115) H 02/09/24 03:25 Calculated Osmolality 281 mOsm/kg (285-295) L 02/09/24 03:25 Calcium 8.2 mg/dL (8.5-10.5) L 02/09/24 03:25 Total Bilirubin 0.4 mg/dL (0.15-1.2) 02/08/24 13:04 AST 20 U/L (0-32) 02/08/24 13:04 ALT 10 U/L (0-33) 02/08/24 13:04 Alkaline Phosphatase 58 U/L (35-105) 02/08/24 13:04 Total Protein 6.8 g/dL (6.6-8.7) 02/08/24 13:04 Albumin 4.0 g/dL (3.5-5.2) 02/08/24 13:04 Globulin 2.8 g/dL (1.3-4.6) 02/08/24 13:04 Urine Color Yellow (Yellow) 02/08/24 14:11 Urine Appearance Clear (CLEAR) 02/08/24 14:11 Urine pH 7.5 (5-7) 02/08/24 14:11 Ur Specific Avis 1.006 (1.005-1.030) 02/08/24 14:11 Urine Protein Negative (Negative) 02/08/24 14:11 Urine Glucose (UA) Negative (Normal) 02/08/24 14:11 Urine Ketones Negative (Negative) 02/08/24 14:11 Urine Blood Negative (Negative) 02/08/24 14:11 Urine Nitrate Negative (Negative) 02/08/24 14:11 Urine Bilirubin Negative (Negative) 02/08/24 14:11 Urine Urobilinogen 0.2 mg/dL (Negative) 02/08/24 14:11 Ur Leukocyte Esterase 3+ (Negative) A 02/08/24 14:11 Urine RBC 0-2 /hpf (0-2) 02/08/24 14:11 Urine WBC 11-20 /hpf (0-5) H 02/08/24 14:11 Ur Squamous Epith Cells 0-5 /hpf (0-5) 02/08/24 14:11 Amorphous Sediment Not Reportable 02/08/24 14:11 Urine Bacteria Trace /hpf (NONE) 02/08/24 14:11 Hyaline Casts 0-4 /lpf H 02/08/24 14:11 Vitals Last Vital Signs Temp 97.6 F 02/09/24 15:34 Pulse 91 02/09/24 15:34 Resp 16 02/09/24 15:34 BP 122/67 02/09/24 15:34 Pulse Ox 92 02/09/24 15:34 O2 Del Method Room Air 02/09/24 15:34 O2 Flow Rate 8 02/08/24 18:40 Discharge Plan Discharge Patient Disposition: Home Health Service Condition: Stable Prescriptions: New hydrocodone-acetaminophen 5-325 mg tablet 1 tab PO BID PRN (Reason: pain) Qty: 3 0RF acetaminophen 325 mg Tablet 650 mg PO Q6H PRN (Reason: Mild/Mod Pain Or Temp >/= 101) Qty: 30 3RF cefdinir 300 mg capsule 300 mg PO BID 3 Days Qty: 6 0RF Xarelto 10 mg tablet 10 mg PO DAILY 30 Days Qty: 30 0RF Continued lisinopril 20 mg Tablet 20 mg PO QPM multivitamin Tablet 1 tab PO QAM buspirone 5 mg tablet 5 mg PO DAILY PRN (Reason: Anxiety) amlodipine 10 mg tablet 10 mg PO QAM Changed potassium gluconate 600 mg (99 mg) Tablet 300 mg PO DAILY Qty: 1 0RF Rx Instructions: Decrease to half tab. Discontinued tramadol 50 mg tablet 50 - 100 mg PO Q6H PRN (Reason: Pain) Discharge Orders: Discharge Order (Routine); Ordered 02/09/24 Ordered By: Rene Pollard Referrals: [facility] [Outside] Christiane Vigil MD [Physician] - 02/22/24 3:15 pm (This is with the Nurse Practitioner, CHUCK Dominguez) Sheila Cox MD [Primary Care Provider] - 02/16/24 2:20 pm ([phone] APPOINTMENT WITH [facility] Discharge Activity: As per PT/OT instructions Patient Instructions: Rivaroxaban (By mouth), Hydrocodone (By mouth), Acute Wound Care (DC), Fall Prevention (GEN), ORIF of Hip Fracture (GEN), Opioid Safety, Post Anesthesia Care Activity Restrictions/Additional Instructions: May weight-bear as tolerated with the assistance of a standard walker. Maintain clean and dry postoperative dressing. May shower with the plastic dressing over incision site. Shower with the assistance of running water and soap only. Do not soak the incision site. If your plastic dressing becomes wet through the inside, please remove this dressing, cleanse the incision and apply new bandage. Discharge Attestations Time Spent in Discharge Care*: greater than 30 min Quality Metrics Clinical Quality Measures [ No reported AMI, CVA or VTE this stay] Coding Level of Care Code 77307 Total time (in minutes) for Discharge: 50 Diagnoses Closed subcapital fracture of left femur with routine healing, subsequent encounter S72.012D Encounter type: subsequent encounter Fracture type: closed Fracture healing: with routine healing Fall, subsequent encounter W19.XXXD Encounter type: subsequent encounter
[2024-02-09 18:09] VITALS: BP 122/67; PULSE 91; RESP 16; TEMP 36.4; O2SAT 92
== END 2024-02-09 17:50 | disposition home health service (06) | DRG 482 ==
LOC: ER 13:15 → MEDSURG 14:36
PROVIDERS: Specialist; Admitting Provider Internal Medicine; Emergency Provider Emergency Medicine; PCP Family Medicine; Visit Provider Internal Medicine
PROC: 0QS704Z Reposition Left Upper Femur with Internal Fixation Device, Open Approach (ICD-10-PCS; CPT 27236; principal; 2024-02-08 17:50)
DX: S72.012A Unspecified intracapsular fracture of left femur, initial encounter for closed fracture (principal); W01.0XXA Fall on same level from slipping, tripping and stumbling without subsequent striking against object, initial encounter; Y92.098 Other place in other non-institutional residence as the place of occurrence of the external cause; I10 Essential (primary) hypertension
CPT/HCPCS: 36415; 51702; 51798; 71045; 73502; 76000; 80048; 80053; 81003; 81015; 85025; 85610; 87086; 93005; 96374; 96375; 97110; 97116; 97161; 97165; 99285; C1713; J0131; J0690; J0696; J1100; J2270; J2371; J2405; J2704; J3010; J3490; J7030

== ENCOUNTER → 2024-02-22 15:43 | Outpatient (BNVA) | payer MEDICARE, SELFPAY | PROVIDERS: PCP Family Medicine; Visit Provider Nurse Practitioner | DX: S72.012D Unspecified intracapsular fracture of left femur, subsequent encounter for closed fracture with routine healing (principal); W19.XXXD Unspecified fall, subsequent encounter | CPT/HCPCS: 73502; 99024 ==

== ENCOUNTER → 2024-04-18 09:38 | Outpatient (BNVA) | payer MEDICARE, SELFPAY | PROVIDERS: PCP Family Medicine; Visit Provider Specialist | DX: S72.012D Unspecified intracapsular fracture of left femur, subsequent encounter for closed fracture with routine healing (principal); X58.XXXD Exposure to other specified factors, subsequent encounter; Z96.698 Presence of other orthopedic joint implants | CPT/HCPCS: 73502; 99024 ==